=== PATIENT | male | born 1980 | race Two or more races ===

== ENCOUNTER 2017-09-06 13:49 | Emergency (ER) | payer SELFPAY ==
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
== END 2017-09-06 14:32 | disposition home or self-care (01) ==
LOC: ER 13:49
DX: H60.392 Other infective otitis externa, left ear (principal); S09 Other and unspecified injuries of head; V49.9XXS Car occupant (driver) (passenger) injured in unspecified traffic accident, sequela; R03.0 Elevated blood-pressure reading, without diagnosis of hypertension; H92.02 Otalgia, left ear; J34.89 Other specified disorders of nose and nasal sinuses; F17.200 Nicotine dependence, unspecified, uncomplicated; Z87.828 Personal history of other (healed) physical injury and trauma; Z88.8 Allergy status to other drugs, medicaments and biological substances
CPT/HCPCS: 99282